=== PATIENT | female | born 1975 | race Caucasian/White ===

== ENCOUNTER 2020-10-28 08:33 | Day surgery (SDC) | payer BC ==
[~2020-10-28 08:33] MED LIST: Lactated Ringers 1,000 ML IV SCH; Lidocaine 1%/Sod Bicarbonate in NS 8.4% 1 ML Syringe IDERM PRN; Midazolam 1 MG/ML 2 ML SDV ONE; Ondansetron 4 MG/2 ML SDV ONE; Propofol 200 MG/20 ML SDV ONE; Rocuronium 50 MG/5 ML Vial ONE; Sodium Chloride 0.9% 10 ML Syringe FLUSH PRN; fentaNYL 250 MCG/5 ML SDV ONE
[2020-10-28] MEDS ORDERED: Sodium Chloride 0.9% 50 ML SDV ONE (08:45)
--- NOTE | 2020-10-28 08:45 | PCM.PREANE ---
Preanesthetic Assessment - Procedure Proposed Procedure: Total vaginal hysterectomy with bilateral salpingectomy - Anesthesia/Transfusion/Family Hx Anesthesia History: Prior Anesthesia Without Reaction Family History of Anesthesia Reaction: No Transfusion History: No Prior Transfusion(s) Intubation History: Unknown - Review of Systems General: No Symptoms Pulmonary: No Symptoms Cardiovascular: No Symptoms Gastrointestinal: No Symptoms Neurological: No Symptoms Other: Reports: None - Physical Assessment NPO Status Date: 10/27/20 NPO Status Time: 20:00 Vital Signs: Bp 125/92 HR 88 16 96% 98.2 Height: 1.57 m Weight: 86 kg ASA Class: 2 Mental Status: Alert & Oriented x3 Airway Class: Mallampati = 2 Dentition: Reports: Lordship(s), Missing Tooth/Teeth, Caries Thyro-Mental Finger Breadths: 3 Mouth Opening Finger Breadths: 3 ROM/Head Extension: Full Lungs: Clear to Auscultation, Normal Respiratory Effort Cardiovascular: Regular Rate, Regular Rhythm, No Murmurs - Lab Values: Awaiting for lab results, will assess prior to going back for surgery - Allergies Allergies/Adverse Reactions: Allergies Allergy/AdvReac Type Severity Reaction Status Date / Time No Known Allergies Allergy Verified 10/27/20 16:13 - Blood Blood Available: No Product(s) Available: None - Anesthesia Plan Pre-Op Medication Ordered: None - Acknowledgements Anesthesia Type Planned: General Anesthesia Pt an Appropriate Candidate for the Planned Anesthesia: Yes Alternatives and Risks of Anesthesia Discussed w Pt/Guardian: Yes Pt/Guardian Understands and Agrees with Anesthesia Plan: Yes PreAnesthesia Questionnaire HEENT History: Reports: None Cardiovascular History: Reports: None Respiratory History: Reports: None Gastrointestinal History: Reports: GERD (related to certain foods) Genitourinary History: Reports: None [employer] History: Reports: Other OB/BYN History: dysmenorrhea; vaginal delivery x3, miscarriage x1 Musculoskeletal History: Reports: None Neurological History: Reports: None Psychiatric History: Reports: None Endocrine/Metabolic History: Reports: None Hematologic History: Reports: None Immunologic History: Reports: None Oncologic (Cancer) History: Reports: None Dermatologic History: Reports: None - Infectious Disease History Infectious Disease History: Reports: None - Past Surgical History Head Surgeries/Procedures: Reports: None HEENT Surgical History: Reports: None Cardiovascular Surgical History: Reports: None Respiratory Surgical History: Reports: None GI Surgical History: Reports: None Female Surgical History: Reports: D&C, Tubal Ligation Male Surgical History: Reports: None Endocrine Surgical History: Reports: None Neurological Surgical History: Reports: None Musculoskeletal Surgical History: Reports: None Oncologic Surgical History: Reports: None Dermatological Surgical History: Reports: None - SUBSTANCE USE Tobacco Use Status *Q: Former Tobacco User Tobacco Use Within Last Twelve Months: No Second Hand Smoke Exposure: No Days Per Week of Alcohol Use: 1 Number of Drinks Per Day: 6 Total Drinks Per Week: 6 Recreational Drug Use History: No - HOME MEDS Home Medications: Home Meds Biotin 1 mg PO DAILY 10/27/20 [History] Cholecalciferol (Vitamin D3) [Vitamin D3] 1,000 unit PO DAILY 10/27/20 [History] Multivitamin [Multi-Day Vitamins] 1 tab PO DAILY 10/27/20 [History] - CURRENT (IN HOUSE) MEDS Current Meds: Current Medications Lactated Ringer's (Ringers, Lactated) 1,000 mls @ 125 mls/hr IV ASDIRECTED ESEQUIEL Stop: 10/28/20 23:00 Lidocaine/Sodium Bicarbonate (Lidocaine 1%/Sod Bicarbonate In Ns 8.4% 1 Ml Syringe) 0.25 ml IDERM ONETIME PRN PRN Reason: Prior to IV Start Stop: 10/28/20 18:00 Sodium Chloride (Sodium Chloride 0.9% 10 Ml Syringe) 10 ml FLUSH ASDIRECTED PRN PRN Reason: Keep Vein Open Stop: 10/28/20 18:00 Discontinued Medications Fentanyl (Fentanyl 250 Mcg/5 Ml Sdv) Confirm Administered Dose 250 mcg .ROUTE .STK-MED ONE Stop: 10/28/20 07:50 Lidocaine HCl (Lidocaine 1% 5 Ml Sdv) Confirm Administered Dose 5 ml .ROUTE .STK-MED ONE Stop: 10/28/20 07:52 Midazolam HCl (Midazolam 1 Mg/Ml 2 Ml Sdv) Confirm Administered Dose 2 mg .ROUTE .STK-MED ONE Stop: 10/28/20 07:50 Ondansetron HCl (Ondansetron 4 Mg/2 Ml Sdv) Confirm Administered Dose 4 mg .ROUTE .STK-MED ONE Stop: 10/28/20 07:52 Propofol (Propofol 200 Mg/20 Ml Sdv) Confirm Administered Dose 200 mg .ROUTE .STK-MED ONE Stop: 10/28/20 07:50 Rocuronium [place] (Rocuronium 50 Mg/5 Ml Vial) Confirm Administered Dose 50 mg .ROUTE .[facility] Stop: 10/28/20 07:52
[2020-10-28] MEDS ORDERED: Albuterol 0.083% 2.5 MG/3 ML Neb Soln NEB ONE (09:05)
[2020-10-28] MEDS: Lidocaine 1% with EPINEPHrine 1:100,000 10 ML MDV ONE ×2 (09:53→10:15)
[2020-10-28] MEDS ORDERED: ceFAZolin 1 GM Vial ONE (10:10)
[2020-10-28] MEDS ORDERED: HYDROmorphone 0.5 MG/0.5 ML Syringe ONE (10:11)
[2020-10-28] MEDS ORDERED: Dexmedetomidine 200 MCG/2 ML SDV ONE (10:18)
[2020-10-28] MEDS ORDERED: Sodium Chloride 0.9% 100 ML ONE (10:18)
[2020-10-28] MEDS ORDERED: fentaNYL 100 MCG/2 ML SDV ONE (10:18)
[2020-10-28] MEDS ORDERED: Propofol 200 MG/20 ML SDV ONE (10:18)
[2020-10-28] MEDS ORDERED: Dexamethasone 4 MG/ML 5 ML MDV ONE (10:25)
[2020-10-28] MEDS ORDERED: Ketorolac 30 MG/ML SDV ONE (10:35)
[2020-10-28] MEDS ORDERED: Lactated Ringers 1,000 ML ONE (10:40)
[2020-10-28] MEDS ORDERED: Ondansetron 4 MG/2 ML SDV IVPUSH PRN ×2 (11:09→11:16)
[2020-10-28] MEDS ORDERED: Acetaminophen/oxyCODONE 325-5 MG Tab PO PRN (11:09)
[2020-10-28] MEDS ORDERED: Ketorolac 30 MG/ML SDV IVPUSH SCH (11:15)
[2020-10-28] MEDS ORDERED: fentaNYL 100 MCG/2 ML SDV IVPUSH PRN (11:16)
[2020-10-28] MEDS ORDERED: HYDROmorphone 0.5 MG/0.5 ML Syringe IVPUSH PRN (11:16)
--- NOTE | 2020-10-28 11:16 | PCM.POSTAN ---
POST ANESTHESIA ASSESSMENT - MENTAL STATUS Mental Status: Alert, Oriented - VITAL SIGNS Vital Signs: Last Vital Signs Temp 98.2 F 10/28/20 08:30 Pulse 88 10/28/20 08:30 Resp 16 10/28/20 08:30 BP 125/92 H 10/28/20 08:30 Pulse Ox 96 10/28/20 08:30 Vital signs at 1103: 100/61 97% 2 liters HR 67 RR 10 97.6 - RESPIRATORY Respiratory Status: Respiratory Rate WNL, Airway Patent, O2 Saturation Stable - CARDIOVASCULAR CV Status: Pulse Rate WNL, Blood Pressure Stable - GASTROINTESTINAL GI Status: No Symptoms - PAIN Pain Score: 3 ("gas bubble pain") - POST OP HYDRATION Hydration Status: Adequate & Stable (Patient denies nausea)
--- NOTE | 2020-10-28 11:17 | PCM.OPNOTE ---
- General Post-Op/Procedure Note Date of Surgery/Procedure: 10/28/20 Operative Procedure(s): Total vaginal hysterectomy with bilateral salpingectomy Findings: Uterus tubes and ovaries were normal. Patient is status post tubal ligation. Pre Op Diagnosis: 1. Abnormal uterine bleeding. 2. Dysmenorrhea Post-Op Diagnosis: Same Anesthesia Technique: General ET Tube Other Anesthesia Type: Lidocaine quarter percent with [id number] cc totallocal Primary Surgeon: Alex Muñoz Secondary Surgeon: Martín Roth Anesthesia Provider: Aspen Perkins Lathe Mechanic: Suzan Ramos Reason Lathe Mechanic Was Necessary: Retraction, assistance, patient safety, quality of care. Pathology: Uterus, bilateral fallopian tubes Fluid Replacement, Intraop: 1,200 EBL in mLs: 25 Complications: None Condition: Good Free Text/Narrative:: Surgery duration: 30 minutes Procedure: The patient was placed in supine position on the operating table. General endotracheal anesthesia was accomplished. After positioning, and adequate prep and drape, the procedure was then performed. Sterile speculum was placed in the vagina and cervix was visualized. Cervix was injected with lidocaine quarter percent with epinephrine-20 mL used. A full circumference incision was made in the cervical epithelium. The bladder was pushed well back off cervix. Posterior cul-de-sac was then entered sharply without problems. Left uterosacral was crossclamped with a Enseal vessel closure system. The left uterosacral and then the right uterosacral ligament pedicles were developed using the Enseal system. The anterior cul-de-sac was then entered without problems and the uterine vasculature, cardinal ligament and broad ligament then developed using Enseal vessel closure system. The uterus was inverted at this time and upper broad ligament fallopian tube pedicles were crossclamped with Chang clamps. Specimen was totally removed. Both these pedicles were then secured with the Enseal vessel closure system Left and right fallopian tube was normal in appearance-status post tubal ligation with the proximal and distal portion and a missing isthmic portion due to BTL.. Using Enseal vessel closure system each of the tubes was then removed and sent with the specimen. The patient was found to be hemostatically intact at this time. Vaginal cuff was sutured for hemostatic reasons with a running locked suture of 0 Monocryl from the 2 o'clock position to the 10 o'clock position posteriorly. Vaginal cuff was then closed from right to left side with a running locked suture of 0 Monocryl. Patient was returned to supine position and awakened from general endotracheal anesthesia. She tolerated the procedure and left the operating room in satisfactory condition.
--- NOTE | 2020-10-28 12:53 | PCM48HPAN ---
Post Anesthesia Note - EVALUATION WITHIN 48HRS OF ANESTHETIC Vital Signs in Normal Range: Yes Patient Participated in Evaluation: Yes Respiratory Function Stable: Yes Airway Patent: Yes Cardiovascular Function Stable: Yes Hydration Status Stable: Yes Pain Control Satisfactory: Yes Nausea and Vomiting Control Satisfactory: Yes Mental Status Recovered: Yes Vital Signs: Last Vital Signs Temp 97.6 F 10/28/20 12:05 Pulse 68 10/28/20 12:05 Resp 12 10/28/20 12:05 BP 104/57 L 10/28/20 12:05 Pulse Ox 96 10/28/20 12:05
[2020-10-28] MEDS ORDERED: Ibuprofen 600 MG Tab PO PRN (16:00)
== END 2020-10-28 14:03 | disposition home or self-care (01) ==
LOC: JD.SDS 08:33
PROVIDERS: ATTEND Obstetrics & Gynecology
DX: D25.9 Leiomyoma of uterus, unspecified (principal); N72 Inflammatory disease of cervix uteri; N84.0 Polyp of corpus uteri; N80.0 Endometriosis of uterus; K21.9 Gastro-esophageal reflux disease without esophagitis; Z87.891 Personal history of nicotine dependence; Z79.899 Other long term (current) drug therapy
CPT/HCPCS: 36415; 58262; 81003; 81025; 82565; 85025; 86850; 86900; 86901; J0690; J1100; J1170; J1885; J2250; J2405; J2704; J2710; J3010; J7120; 00944

== ENCOUNTER 2023-12-08 21:07 | Emergency (ER) | payer OTHER ==
[2023-12-08 21:33] LABS: BASOPHILS PERCENT AUTO 0.3 % (0.0-1.0); EOSINOPHILS ABSOLUTE AUTO 0.1 K/mm3 (0.0-0.4); HEMATOCRIT 43.5 % (37.0-47.0); HEMOGLOBIN 14.8 gm/dl (12.0-16.0); IMMATURE GRAN ABSOLUTE AUTO 0.07 K/mm3 (0.00-0.05); IMMATURE GRAN PERCENT AUTO 0.6 % (0.0-0.4); LYMPHOCYTES ABSOLUTE AUTO 3.1 K/mm3 (1.0-4.8); LYMPHOCYTES PERCENT AUTO 26.1 % (24.0-44.0); MEAN CORPUSCULAR HEMOGLOBIN 30.1 pg (28.0-32.0); MEAN CORPUSCULAR VOLUME 88.6 fl (83.0-99.0); MEAN PLATELET VOLUME 8.2 fl (9.4-12.3); MONOCYTES PERCENT AUTO 8.4 % (0.0-8.0); NEUTROPHILS ABSOLUTE AUTO 7.6 K/mm3 (1.8-7.7); NEUTROPHILS PERCENT AUTO 63.6 % (41.0-71.0); PLATELET COUNT,PLT 343 K/mm3 (150-400); RED BLOOD CELL COUNT 4.91 M/mm3 (4.10-5.30); WHITE BLOOD CELL COUNT,WBC 11.97 K/mm3 (3.9-11.3)
[2023-12-08] MEDS: Ondansetron 4 MG/2 ML SDV IVPUSH ONE (21:37)
[2023-12-08] MEDS: Sodium Chloride 0.9% 1,000 ML IV STA (21:37)
[2023-12-08] MEDS: Sodium Chloride 0.9% 10 ML Syringe FLUSH PRN (21:37)
[2023-12-08] MEDS: HYDROmorphone 0.5 MG/0.5 ML Syringe IVPUSH ONE ×2 (21:37→23:22)
[2023-12-08 21:53] LABS: A/G RATIO 0.9 (1-2); ALBUMIN 3.5 g/dl (3.4-5.0); ANION GAP 11.9 (5-15); BILIRUBIN TOTAL 0.6 mg/dL (0.2-1.0); BUN/CREATININE RATIO 11.4 (14-18); C-REACTIVE PROTEIN 0.64 mg/dL (<0.30); CALCIUM 8.8 mg/dL (8.5-10.1); CREATININE 0.7 mg/dL (0.55-1.02); EST CRCL DRUG DOSING (CG) 76.89 mL/min; POTASSIUM,K 3.9 mEq/L (3.5-5.1); PROTEIN TOTAL,TP 7.5 g/dl (6.4-8.2)
[2023-12-08 22:57] LABS: APPEARANCE,URINE CLEAR (Clear); BILIRUBIN,URINE NEGATIVE (Negative); COLOR,URINE YELLOW (Yellow); GLUCOSE,URINE NEGATIVE (Negative); KETONES,URINE NEGATIVE (Negative); LEUKOCYTE ESTERASE,URINE NEGATIVE (Negative); NITRITE,URINE NEGATIVE (Negative); OCCULT BLOOD,URINE TRACE-LYSED (Negative); PH,URINE 6.5 (5.0-8.0); PROTEIN,URINE NEGATIVE (Negative); UROBILINOGEN,URINE 0.2 (0.2-1.0)
[2023-12-08 23:07] LABS: BACTERIA,URINE FEW /hpf (FEW); MUCUS,URINE NOT SEEN /hpf (FEW); SQUAMOUS EPITHELIAL CELLS,UR 0-5 /hpf (0-5); WBC,URINE 0-5 /hpf (0-5)
[2023-12-08] MEDS: Hyoscyamine 0.125 MG Tab.SL SL ONE (23:23)
== END 2023-12-08 23:35 | disposition home or self-care (01) ==
LOC: JD.ED 21:07
DX: K80.50 Calculus of bile duct without cholangitis or cholecystitis without obstruction (principal); Z90.710 Acquired absence of both cervix and uterus; Z88.1 Allergy status to other antibiotic agents
CPT/HCPCS: 36415; 76705; 80053; 81001; 83690; 85025; 86140; 96361; 96374; 96375; 96376; 99284; A9270; J1171; J2405; J3490; J7030; 99283

== ENCOUNTER 2023-12-11 12:27 | Observation (INO) | payer OTHER ==
[2023-12-11] MEDS ORDERED: Naloxone 0.4 MG/ML SDV IVPUSH PRN (13:47)
[2023-12-11 13:57] LABS: BASOPHILS PERCENT AUTO 0.3 % (0.0-1.0); EOSINOPHILS ABSOLUTE AUTO 0.1 K/mm3 (0.0-0.4); EOSINOPHILS PERCENT AUTO 0.8 % (0.0-6.0); HEMATOCRIT 44.5 % (37.0-47.0); HEMOGLOBIN 14.6 gm/dl (12.0-16.0); IMMATURE GRAN ABSOLUTE AUTO 0.03 K/mm3 (0.00-0.05); IMMATURE GRAN PERCENT AUTO 0.3 % (0.0-0.4); LYMPHOCYTES ABSOLUTE AUTO 1.8 K/mm3 (1.0-4.8); LYMPHOCYTES PERCENT AUTO 14.9 % (24.0-44.0); MEAN CORPUSCULAR HEMOGLOBIN 29.6 pg (28.0-32.0); MEAN CORPUSCULAR HGB CONC 32.8 g/dl (32.0-36.0); MEAN CORPUSCULAR VOLUME 90.1 fl (83.0-99.0); MEAN PLATELET VOLUME 8.2 fl (9.4-12.3); MONOCYTES ABSOLUTE AUTO 0.3 K/mm3 (0.0-0.8); MONOCYTES PERCENT AUTO 2.8 % (0.0-8.0); NEUTROPHILS ABSOLUTE AUTO 9.6 K/mm3 (1.8-7.7); NEUTROPHILS PERCENT AUTO 80.9 % (41.0-71.0); PLATELET COUNT,PLT 321 K/mm3 (150-400); RED BLOOD CELL COUNT 4.94 M/mm3 (4.10-5.30); WHITE BLOOD CELL COUNT,WBC 11.88 K/mm3 (3.9-11.3)
[2023-12-11] MEDS: HYDROmorphone 0.5 MG/0.5 ML Syringe IVPUSH ONE (14:02)
[2023-12-11 14:18] LABS: A/G RATIO 0.9 (1-2); ALBUMIN 3.6 g/dl (3.4-5.0); ANION GAP 10.9 (5-15); BILIRUBIN TOTAL 2.7 mg/dL (0.2-1.0); BUN/CREATININE RATIO 6.3 (14-18); C-REACTIVE PROTEIN 0.87 mg/dL (<0.30); CALCIUM 8.8 mg/dL (8.5-10.1); CREATININE 0.8 mg/dL (0.55-1.02); EST CRCL DRUG DOSING (CG) 67.28 mL/min; POTASSIUM,K 3.9 mEq/L (3.5-5.1); PROTEIN TOTAL,TP 7.7 g/dl (6.4-8.2)
[2023-12-11] MEDS ORDERED: Sodium Chloride 0.9% 10 ML Syringe FLUSH PRN (14:54)
[2023-12-11] MEDS: Sodium Chloride 0.9% 10 ML Syringe FLUSH PRN (15:14)
[2023-12-11] MEDS: Iopamidol 755 Mg/ML 100 ML Bottle IVPUSH ONE (15:14)
[2023-12-11] MEDS: Sodium Chloride 0.9% 100 ML IV SCH (15:14)
[2023-12-11] MEDS: Ondansetron 4 MG/2 ML SDV IVPUSH ONE (17:16)
[2023-12-11] MEDS ORDERED: Ondansetron 4 MG Tab.DIS PO PRN (18:28)
[2023-12-11] MEDS ORDERED: Ibuprofen 800 MG Tab PO PRN (18:28)
[2023-12-11] MEDS: Piperacillin/Tazobactam 4.5 GM in Sodium Chloride 0.9% 100 ML IV ONE (19:21)
[2023-12-11] MEDS: HYDROmorphone 0.5 MG/0.5 ML Syringe IVPUSH PRN (19:25)
[2023-12-11] MEDS: Lactated Ringers 1,000 ML IV SCH (20:07)
[2023-12-12] MEDS: Piperacillin/Tazobactam 4.5 GM in Sodium Chloride 0.9% 100 ML IV SCH (00:04)
[2023-12-12] MEDS: Acetaminophen 325 MG Tab PO PRN (00:38)
[2023-12-12] MEDS: Iopamidol 612 MG/ML 100 ML Bottle IVPUSH ONE (03:44)
[2023-12-12 06:22] LABS: HEMATOCRIT 40.9 % (37.0-47.0); HEMOGLOBIN 13.6 gm/dl (12.0-16.0); MEAN CORPUSCULAR HEMOGLOBIN 29.9 pg (28.0-32.0); MEAN CORPUSCULAR HGB CONC 33.3 g/dl (32.0-36.0); MEAN CORPUSCULAR VOLUME 89.9 fl (83.0-99.0); MEAN PLATELET VOLUME 8.8 fl (9.4-12.3); PLATELET COUNT,PLT 246 K/mm3 (150-400); RED BLOOD CELL COUNT 4.55 M/mm3 (4.10-5.30)
[2023-12-12 07:16] LABS: A/G RATIO 0.8 (1-2); ALBUMIN 3.1 g/dl (3.4-5.0); ANION GAP 12.7 (5-15); BILIRUBIN DIRECT 2.3 mg/dl (0.0-0.2); BILIRUBIN TOTAL 3.3 mg/dL (0.2-1.0); CALCIUM 8.2 mg/dL (8.5-10.1); EST CRCL DRUG DOSING (CG) 53.82 mL/min; POTASSIUM,K 3.7 mEq/L (3.5-5.1)
[2023-12-12] MEDS ORDERED: ceFAZolin 2 GM Vial ONE (07:48)
[2023-12-12] MEDS ORDERED: Rocuronium 50 MG/5 ML Vial ONE (07:48)
[2023-12-12] MEDS ORDERED: Lidocaine 1% 5 ML VIAL ONE (07:48)
[2023-12-12] MEDS ORDERED: Ondansetron 4 MG/2 ML SDV ONE (07:48)
[2023-12-12] MEDS ORDERED: fentaNYL 250 MCG/5 ML SDV ONE (07:49)
[2023-12-12] MEDS ORDERED: Propofol 200 MG/20 ML SDV ONE (07:49)
[2023-12-12] MEDS ORDERED: Midazolam 1 MG/ML 2 ML SDV ONE (07:49)
[2023-12-12] MEDS ORDERED: ePHEDrine 50 MG/ML SDV ONE (08:01)
[2023-12-12] MEDS ORDERED: Ketorolac 30 MG/ML SDV ONE (08:27)
[2023-12-12] MEDS ORDERED: Metoclopramide 10 MG/2 ML SDV ONE (09:49)
[2023-12-12] MEDS ORDERED: Dexamethasone 4 MG/ML 5 ML MDV ONE (09:52)
[2023-12-12] MEDS ORDERED: dexmedeTOMIDine HCl 200 MCG/2 ML SDV ONE (09:55)
[2023-12-12] MEDS ORDERED: Lactated Ringers 1,000 ML ONE (09:59)
[2023-12-12] MEDS ORDERED: HYDROmorphone 0.5 MG/0.5 ML Syringe ONE ×2 (10:07→10:25)
[2023-12-12] MEDS ORDERED: fentaNYL 100 MCG/2 ML SDV ONE (10:49)
[2023-12-12] MEDS: Bupivacaine 0.5% 30 ML SDV ONE (11:09)
[2023-12-12] MEDS: EPINEPHrine 1 MG/ML SDV ONE (11:09)
[2023-12-12] MEDS ORDERED: HYDROmorphone 0.5 MG/0.5 ML Syringe IVPUSH PRN (11:16)
[2023-12-12] MEDS ORDERED: Ondansetron 4 MG/2 ML SDV IVPUSH PRN (11:16)
[2023-12-12] MEDS ORDERED: fentaNYL 100 MCG/2 ML SDV IVPUSH PRN (11:16)
[2023-12-12] MEDS ORDERED: Sugammadex Sodium 200 MG/2 ML VIAL IV ONE (11:24)
[2023-12-12] MEDS ORDERED: Ketorolac 15 MG/ML SDV ONE (11:29)
[2023-12-12] MEDS ORDERED: Sodium Chloride 0.9% 50 ML SDV ONE (11:33)
[2023-12-12] MEDS: Iopamidol 612 MG/ML 30 ML SDV ONE (12:25)
[2023-12-12] MEDS: Pantoprazole 40 MG Vial IVPUSH PRN (13:35)
[2023-12-13 07:30] LABS: A/G RATIO 0.7 (1-2); ALBUMIN 2.6 g/dl (3.4-5.0); ANION GAP 12.6 (5-15); BILIRUBIN TOTAL 1.7 mg/dL (0.2-1.0); BUN/CREATININE RATIO 8.3 (14-18); CALCIUM 7.9 mg/dL (8.5-10.1); CREATININE 0.6 mg/dL (0.55-1.02); EST CRCL DRUG DOSING (CG) 89.7 mL/min; POTASSIUM,K 3.6 mEq/L (3.5-5.1); PROTEIN TOTAL,TP 6.2 g/dl (6.4-8.2)
[2023-12-13 07:43] LABS: HEMATOCRIT 34.8 % (37.0-47.0); MEAN CORPUSCULAR HEMOGLOBIN 29.4 pg (28.0-32.0); MEAN CORPUSCULAR HGB CONC 32.5 g/dl (32.0-36.0); MEAN CORPUSCULAR VOLUME 90.6 fl (83.0-99.0); MEAN PLATELET VOLUME 9.3 fl (9.4-12.3); PLATELET COUNT,PLT 223 K/mm3 (150-400); RED BLOOD CELL COUNT 3.84 M/mm3 (4.10-5.30); WHITE BLOOD CELL COUNT,WBC 9.18 K/mm3 (3.9-11.3)
[2023-12-13 08:03] LABS: HEMOGLOBIN 11.3 gm/dl (12.0-16.0)
== END 2023-12-13 10:27 | disposition home or self-care (01) ==
LOC: JD.ED 12:27 → JD.MS 18:29
PROVIDERS: ADMIT Surgery; ATTEND Surgery
DX: K80.10 Calculus of gallbladder with chronic cholecystitis without obstruction (principal); K21.9 Gastro-esophageal reflux disease without esophagitis
CPT/HCPCS: 36415; 47563; 74177; 74181; 76000; 76705; 80053; 82248; 82977; 83690; 85025; 85027; 86140; 94761; 96361; 96365; 96366; 96375; 96376; 99285; A9270; G0378; J0171; J0665; J0690; J1100; J1171; J1885; J2250; J2405; J2470; J2543; J2704; J2765; J3010; J3490; J7120; Q9967; 00790